=== PATIENT | female | born 1950 | race African-American/Black ===

== ENCOUNTER → 2018-08-23 | Day surgery (SDC) | payer MEDICARE ==
[2018-08-19 11:21] LABS: BASOPHILS # (AUTO) 0.1 (0.0-0.1); EOSINOPHILS # (AUTO) 0.1 (0.0-0.4); EOSINOPHILS % 1.5 % (0.0-6.0); HEMATOCRIT 38.7 % (34.2-44.1); HEMOGLOBIN 11.4 g/dL (12.0-16.0); LYMPHOCYTES # (AUTO) 2.3 (1.0-3.2); LYMPHOCYTES % 38.1 % (18.0-39.1); MEAN CORPUSCULAR HEMOGLOBIN 23.5 pg (28-32); MEAN CORPUSCULAR HGB CONC 29.5 g/dL (31-35); MEAN CORPUSCULAR VOLUME 79.8 fL (81-99); MONOCYTES # (AUTO) 0.6 (0.2-0.8); MONOCYTES % 9.8 % (4.4-11.3); NEUTROPHILS # (AUTO) 2.9 (2.1-6.9); NEUTROPHILS % 49.4 % (38.7-80.0); PLATELET COUNT 241 x10e3/uL (140-360); RED BLOOD COUNT 4.85 x10e6/uL (3.6-5.1); RED CELL DISTRIBUTION WIDTH 14.3 % (11.7-14.4)
[~2018-08-23] MED LIST: ALBUTEROL0.63 MG/3 INH; AMLODIPINE BESYL5 MG PO; ESMOLOL HCL 100MG/10ML 10 MG/ML VIAL IV ONE; ESMOLOL HCL 100MG/10ML 10 MG/ML VIAL ONE; FENTANYL CITRATE/PF 100MCG/2 ML INJ ONE; HYOSCYAMINE SULFATE 0.5 MG/ML INJ ONE; LIDOCAINE HCL 2% LOCAL INJ 5 ML SDV VIAL INJ ONE; LIPITOR10 MG PO; NITROGLYCERIN0.4 MG SL; PROPOFOL IV EMULSION 10 MG/ML 50 ML VIAL ONE; SYMBICORT 16010.2 GM INH; ZOLOFT50 MG PO
--- OUTSIDE RECORDS SUMMARY | 2018-08-23 09:36 | XMS REPORT | Continuity of Care Document ---
Author Author [facility] Interface Address Unknown Phone Unavailable Problems Problem Status Onset Date Classification Date Reported Comments Source Other hammer toe (acquired), left foot 11/27/2017 06/09/2018 [facility] M20.42 - OTHER HAMMER TOE(S) (ACQUIRED) Active 11/18/2017 [facility] Discharge Diagnosis: Benign paroxysmal positional vertigo 12/25/2013 12/27/2013 [facility] Discharge Diagnosis: Nausea 12/25/2013 12/27/2013 [facility] Discharge Diagnosis: Dehydration 12/25/2013 12/27/2013 [facility] Discharge Diagnosis: Acute diarrhea 12/25/2013 12/27/2013 [facility] Discharge Diagnosis: Abdominal pain, acute, epigastric 12/25/2013 12/27/2013 [facility] ABD PAIN Active 12/25/2013 [facility] Hypertension Resolved Problem 06/09/2018 [facility] Stented coronary artery Resolved Problem 06/09/2018 [facility] Medications Medication Details Route Status Patient Instructions Ordering Provider Order Date Source pantoprazole 40 MG Enteric Coated Tablet [Protonix] 40 mg=1 tab, PO, Daily, # 30 tab, 0 Refill(s) Active 12/25/2013 [facility] meclizine 25 mg oral tablet 25 mg, PO, Q6H, Dizziness, # 30 tab, 0 Refill(s) Active 12/25/2013 [facility] Ondansetron 4 MG Oral Tablet [Zofran] 4 mg=1 tab, PO, Q8H, # 10 tab, 0 Refill(s) Active 12/25/2013 [facility] tramadol hydrochloride 50 MG Oral Tablet 50 mg, PO, Q4- 6H, Pain, # 20 tab, 0 Refill(s) Active 12/25/2013 [facility] Meclizine 25 mg, Route: PO, Drug form: TAB, ONCE, Dosing Weight 83.636, kg, Priority: STAT, Start date: 12/25/13 14:24:00, Stop date: 12/25/13 14:24:00 Inactive 12/25/2013 [facility] Famotidine 20 mg, 2 mL, Route: IVP, Drug form: INJ, ONCE, Dosing Weight 83.636, kg, Priority: STAT, Start date: 12/25/13 12:39:00, Stop date: 12/25/13 12:39:00Notes: (Same as: Pepcid) Can be dilute in 5-10cc NS IVP: Slow IV push over at least 2 minutes. Inactive 12/25/2013 [facility] Sodium Chloride 0.154 MEQ/ML Injectable Solution 1,000 mL, 1000 ml/hr, Infuse Over: 1 hr, Route: IV, 1,000, Drug form: INJ, ONCE, Priority: STAT, Dosing Weight 83.636 kg, Start date: 12/25/13 12:39:00, Duration: 1 doses or times, Stop date: 12/25/13 12:39:00 Inactive 12/25/2013 [facility] Saline Flush 0.9% 10 mL, Route: IVP, Drug Form: INJ, Dosing Weight 83.636, kg, PRN, PRN Line Flush, Start date: 12/25/13 12:39:00, Duration: 30 day, Stop date: 01/24/14 12:38:00Notes: (Same as: BD Posiflush) Inactive 12/25/2013 [facility] Morphine 4 mg, 2 mL, Route: IVP, Drug form: INJ, ONCE, Dosing Weight 83.636, kg, Priority: STAT, Start date: 12/25/13 12:39:00, Stop date: 12/25/13 12:39:00Notes: (Same as:MORPhine Sulfate) Inactive 12/25/2013 [facility] Ondansetron 4 mg, 2 mL, Route: IVP, Drug form: INJ, ONCE, Dosing Weight 83.636, kg, Priority: STAT, Start date: 12/25/13 12:39:00, Stop date: 12/25/13 12:39:00Notes: (Same as: Zofran) Inactive 12/25/2013 [facility] Allergies, Adverse Reactions, Alerts Substance Category Reaction Severity Reaction type Status Date Reported Comments Source Latex Assertion Drug allergy Active [facility] Immunizations Immunization Date Given Site Status Last Updated Comments Source Results Order Name Results Value Reference Range Date Interpretation Comments Source Foot series DX Foot series DX Study: Foot series DX 11/20/2017 11:22 AM CDT Patient Name: MONTY ALANIZ MR: [id number] : 1950; Age: 67 years y/o Female Ordering Physician: Tano Pineda DPM Clinical Indication: hammertoe 3rd digit - post op Comparison: None LEFT FOOT, 3 views: 1. No acute fracture, dislocation, or suspicious focal osseous lesion. 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 2. The soft tissues are normal. 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 SL: [id number] 11/20/2017 - - Read by: Soy Muhammad MD Dictated Date/time: 11/20/17 14:10 Electronically Signed by: Soy Muhammad MD 11/20/17 14:12 FINAL REPORT [facility] URINE AND STOOL UA Bacteria Occasional /HPF None Seen /HPF 12/25/2013 [facility] URINE AND STOOL UA Mucus Moderate /LPF None Seen /LPF 12/25/2013 [facility] URINE AND STOOL UA Urobilinogen <=1.0 mg/dL 0.1 - 1.0 12/25/2013 [facility] URINE AND STOOL UA Turbidity Slight *ABN* (12/25/13 1:35 PM) Clear 12/25/2013 [facility] URINE AND STOOL UA pH 5.0 5.0 - 8.0 12/25/2013 [facility] URINE AND STOOL UA Protein Negative mg/dL Negative mg/dL 12/25/2013 [facility] URINE AND STOOL UA Color Yellow *NA* (12/25/13 1:35 PM) Yellow 12/25/2013 [facility] URINE AND STOOL UA Spec Grav 1.023 <=1.030 12/25/2013 [facility] URINE AND STOOL UA WBC null 0 - 5 12/25/2013 [facility] URINE AND STOOL UA RBC 10 /HPF 0 - 2 12/25/2013 [facility] URINE AND STOOL UA Leuk Est Negative (12/25/13 1:35 PM) Negative 12/25/2013 [facility] URINE AND STOOL UA Sq Epi Moderate /LPF Few /LPF 12/25/2013 [facility] URINE AND STOOL UA Glucose Negative mg/dL Negative mg/dL 12/25/2013 [facility] URINE AND STOOL UA Ketones Trace mg/dL Negative mg/dL 12/25/2013 [facility] URINE AND STOOL UA Bili Negative *NA* (12/25/13 1:35 PM) Negative 12/25/2013 [facility] URINE AND STOOL UA Blood Moderate *ABN* (12/25/13 1:35 PM) Negative 12/25/2013 [facility] URINE AND STOOL UA Nitrite Negative (12/25/13 1:35 PM) Negative 12/25/2013 [facility] CARDIAC ENZYMES CK MB Index 0.6 0.0 - 2.5 12/25/2013 [facility] CARDIAC ENZYMES Troponin-I 0.05 ng/mL 0.00 - 0.40 12/25/2013 [facility] CARDIAC ENZYMES CK MB 1.1 ng/mL 0.5 - 3.6 12/25/2013 [facility] CARDIAC ENZYMES Total CK 182 unit/L 12 - 191 12/25/2013 [facility] CHEM PANEL A/G Ratio 0.9 0.7 - 1.6 12/25/2013 [facility] CHEM PANEL B/C Ratio 13 6 - 25 12/25/2013 [facility] CHEM PANEL Globulin 3.8 g/dL 2.0 - 4.0 12/25/2013 [facility] CHEM PANEL AGAP 8.5 meq/L 10.0 - 20.0 12/25/2013 [facility] CHEM PANEL eGFR 79 mL/min/1.73m2 12/25/2013 1Result Comment: The eGFR is calculated using the CKD-EPI formula. In most young, healthy individuals the eGFR will be >90 mL/min/1.73m2. The eGFR declines with age. An eGFR of 60-89 may be normal in some populations, particularly the elderly, for whom the CKD-EPI formula has not been extensively validated. Use of the eGFR is not recommended in the following populations: Individuals with unstable creatinine concentrations, including patients and those with serious co-morbid conditions. Patients with extremes in muscle mass or diet. The data above are obtained from the National Kidney Disease Education Program (NKDEP) which additionally recommends that when the eGFR is used in patients with extremes of body mass index for purposes of drug dosing, the eGFR should be multiplied by the estimated BMI. [facility] CHEM PANEL ALT 23 unit/L 0 - 65 12/25/2013 [facility] CHEM PANEL Albumin Lvl 3.6 g/dL 3.5 - 5.0 12/25/2013 [facility] CHEM PANEL AST 21 unit/L 0 - 37 12/25/2013 [facility] CHEM PANEL Bili Total 0.5 mg/dL 0.2 - 1.3 12/25/2013 [facility] CHEM PANEL Alk Phos 85 unit/L 39 - 136 12/25/2013 [facility] CHEM PANEL Chloride Lvl 103 meq/L 95 - 109 12/25/2013 [facility] CHEM PANEL Potassium Lvl 3.5 meq/L 3.5 - 5.1 12/25/2013 [facility] CHEM PANEL BUN 12 mg/dL 7 - 22 12/25/2013 [facility] CHEM PANEL Sodium Lvl 137 meq/L 135 - 145 12/25/2013 [facility] CHEM PANEL Creatinine Lvl 0.9 mg/dL 0.5 - 1.4 12/25/2013 [facility] CHEM PANEL Calcium Lvl 8.3 mg/dL 8.5 - 10.5 12/25/2013 [facility] CHEM PANEL CO2 29 meq/L 24 - 32 12/25/2013 [facility] CHEM PANEL Total Protein 7.4 g/dL 6.4 - 8.4 12/25/2013 [facility] CHEM PANEL Glucose Lvl 99 mg/dL 70 - 99 12/25/2013 2Interpretive Data: Adult reference range values reflect the clinical guidelines of the [place] [employer]. [facility] CHEM PANEL Lipase Lvl 46 unit/L 73 - 393 12/25/2013 [facility] CHEM PANEL Amylase Lvl 49 unit/L 25 - 115 12/25/2013 [facility] HEMATOLOGY Microcyte 1+ *ABN* (12/25/13 1:24 PM) None Seen 12/25/2013 [facility] HEMATOLOGY Lymphocytes 33.7 % 20.0 - 40.0 12/25/2013 [facility] HEMATOLOGY Monocytes 6.5 % 2.0 - 12.0 12/25/2013 [facility] HEMATOLOGY Segs 57.7 % 45.0 - 75.0 12/25/2013 [facility] HEMATOLOGY Eosinophils 1.1 % 0.0 - 4.0 12/25/2013 [facility] HEMATOLOGY Basophils 1.0 % 0.0 - 1.0 12/25/2013 [facility] HEMATOLOGY Monocytes # 0.3 K/CMM 0.0 - 0.8 12/25/2013 [facility] HEMATOLOGY Segs-Bands # 3.0 K/CMM 1.5 - 8.1 12/25/2013 [facility] HEMATOLOGY Eosinophils # 0.1 K/CMM 0.0 - 0.5 12/25/2013 [facility] HEMATOLOGY Basophils # 0.1 K/CMM 0.0 - 0.2 12/25/2013 [facility] HEMATOLOGY Lymphocytes # 1.8 K/CMM 1.0 - 5.5 12/25/2013 [facility] HEMATOLOGY MCHC 31.8 g/dL 32.0 - 36.0 12/25/2013 [facility] HEMATOLOGY RDW 15.0 % 11.5 - 14.5 12/25/2013 [facility] HEMATOLOGY Platelet 189 K/CMM 133 - 450 12/25/2013 [facility] HEMATOLOGY MPV 8.8 fL 7.4 - 10.4 12/25/2013 [facility] HEMATOLOGY RBC 4.85 M/CMM 4.20 - 5.40 12/25/2013 [facility] MCH 23.9 pg 27.0 - 31.0 12/25/2013 [facility] HEMATOLOGY Hct 36.4 % 36.0 - 48.0 12/25/2013 [facility] MCV 75.1 fL 80.0 - 98.0 12/25/2013 [facility] Hgb 11.6 g/dL 12.0 - 16.0 12/25/2013 [facility] WBC 5.3 K/CMM 3.7 - 10.4 12/25/2013 [facility] IMMUNOLOGY CDC HIV 4th GEN Negative (12/25/13 1:24 PM) Negative 12/25/2013 [facility] Vital Signs Vital Sign Value Date Comments Source Temperature Oral (F) 97.5 F 12/25/2013 [facility] Diastolic (mm Hg) 69 12/25/2013 [facility] Systolic (mm Hg) 123 12/25/2013 [facility] Respitory Rate 16 12/25/2013 [facility] Height 165.1 cm 12/25/2013 [facility] BMI Calculated 30.68 12/25/2013 [facility] Weight 83.636 12/25/2013 [facility] Heart Rate 71 12/25/2013 [facility] Temperature Oral (F) 97.7 F 12/25/2013 [facility] Respitory Rate 18 12/25/2013 [facility] Diastolic (mm Hg) 75 12/25/2013 [facility] Systolic (mm Hg) 145 12/25/2013 [facility] Encounters Location Location Details Encounter Type Encounter Number Reason For Visit Attending Provider ADM Date DC Date Status Source [facility] [id number] Albin Burnett 12/25/2013 12/25/2013 [facility] Outpatient Imaging [facility] [id number] Tano Pineda 11/20/2017 11/21/2017 [facility] Procedures Procedure Code Date Perfomer Comments Source
--- OUTSIDE RECORDS SUMMARY | 2018-08-23 09:36 | XMS REPORT | Clinical Summary ---
Author Author [facility] Organization [facility] Address Unknown Phone Unavailable Care Team Providers Care Manager Unix Name Role Phone System, Provider Not In MD PCP Unavailable Allergies Comments Active Allergy Reactions Severity Noted Date Latex 02/10/2018 Niacin 02/10/2018 Medications End Date Status Medication Sig Dispensed Refills Start Date Active albuterol (PROVENTIL HFA) Inhale 2 0 90 mcg/actuation inhaler puffs every 6 (six) hours as needed for wheezing or shortness of breath. Active aspirin (ECOTRIN) 81 MG Take 81 mg by 0 enteric coated tablet mouth daily. 02/13/2018 Discontinued albuterol (PROAIR HFA) 90 Inhale 1 puff 0 mcg/actuation inhaler 2 (two) times a day. Active Problems Problem Noted Date Chest pain at rest 02/10/2018 Encounters Care Team Description Date Type Specialty Zaida Leong MD Samani, Kaveh, MD Chest pain at rest (Primary Dx) 02/10/2018 Hospital Cardiology - Encounter 02/13/2018 after 08/22/2017 Family History Medical History Relation Name Comments Stroke Father Cancer Mother Diabetes Mother Hypertension Mother Cancer Sister Hypertension Sister Relation Name Status Comments Father Mother pancreatic cancer Sister lung Social History Date Tobacco Use Types Packs/Day Years Used Former Smoker Alcohol Use Drinks/Week oz/Week Comments Yes 1 Glasses of 0.6 drink wicho with coffee every morning wine Sex Assigned at Date Recorded Not on file Industry Job Start Date Occupation Not on file Not on file Not on file Travel End Travel History Travel Start No recent travel history available. Last Filed Vital Signs Time Taken Vital Sign Reading 02/13/2018 7:26 AM CDT Blood Pressure 122/58 02/13/2018 7:26 AM CDT Pulse 69 02/13/2018 7:26 AM CDT Temperature 35.9 C (96.7 F) 02/13/2018 7:26 AM CDT Respiratory Rate 18 02/13/2018 7:26 AM CDT Oxygen Saturation 98% - Inhaled Oxygen - Concentration 02/11/2018 10:05 AM CDT Weight 85.3 kg (188 lb) 02/11/2018 10:05 AM CDT Height 152.4 cm (5') 02/11/2018 10:05 AM CDT Body Mass Index 36.72 Plan of Treatment Health Maintenance Due Date Last Done Comments BREAST CANCER SCREENING 2000 COLON CANCER SCREENING 2000 SHINGLES VACCINES (#1) 2000 65+ PNEUMOCOCCAL VACCINE 2015 (1 of 2 - PCV13) PNEUMOCOCCAL 2015 POLYSACCHARIDE VACCINE AGE 65 AND OVER INFLUENZA VACCINE 11/25/2018 Implants Device Identifier Shelf Expiration Date Model / Serial / Lot Implanted Type Area Manufactur er Cardiac Stent Procedures Comments Procedure Name Priority Date/Time Associated Diagnosis NM MYOCARDIAL PERFUSION Routine 02/12/2018 STRESS REST 2 DAY 9:17 AM CDT ESTIMATED GFR Routine 02/12/2018 4:11 AM CDT BASIC METABOLIC PANEL Routine 02/12/2018 4:11 AM CDT CBC HEMOGRAM Routine 02/12/2018 3:45 AM CDT CV STRESS TEST NUCLEAR Routine 02/11/2018 CARDIO 12:02 PM CDT TROPONIN Routine 02/11/2018 4:00 AM CDT TROPONIN Routine 02/10/2018 8:13 PM CDT XR CHEST 1 VW PORTABLE STAT 02/10/2018 7:10 PM CDT ESTIMATED GFR STAT 02/10/2018 5:14 PM CDT TROPONIN STAT 02/10/2018 5:14 PM CDT CREATINE KINASE, TOTAL STAT 02/10/2018 (CPK) 5:14 PM CDT COMPREHENSIVE METABOLIC STAT 02/10/2018 PANEL 5:14 PM CDT HC COMPLETE BLD COUNT STAT 02/10/2018 W/AUTO DIFF 5:14 PM CDT B NATRIURETIC PEPTIDE STAT 02/10/2018 5:05 PM CDT ECG ED PRELIMINARY Routine 02/10/2018 INTERPRETATION 2:17 PM CDT ECG 12-LEAD STAT 02/10/2018 1:54 PM CDT after 08/22/2017 Results * Myocardial perfusion (02/12/2018 9:17 AM CDT) Narrative Performed At [facility] and Cardiac CT [address] [place] [address] Myocardial Perfusion Imaging Report Stress ECG tracings are available in [employer], [employer] All ECG interpretations are included in this report Pat.Name:Leni BUTTERFIELD.ID:[id number] .Date: 02/11/2018Exam Time: 11:27:00 AM Study Type:Myocardial Perfusion Imaging Height:60in Weight:188lb BSA: 1.82 m2 DOBAge:1950,67Y Sex: FEMALE BP:150/70HR: 75 bpm HCT: 38.5 % Nuclear Tech:NEHA Munoz, CHERY (CT)/NEHA Humphries, CHERY/NEHA Grande Room:[address] Nuclear Event ID:[id number] Order ID:[id number] Reason for Study:Chest pain, unspecified* History / Clinical:COPD, Coronary artery disease, Coronary artery stent, Hypertension, Obesity Procedures:Two Day Stress / Rest Race:-Scottish Risk Factors:Known Coronary Atherosclerosis, Hyperlipidemia, Hypertension, Obesity Clinical Symptoms:Regadenoson Surgery: Serum K+ Date,3.8 on 02/10/18/, BUN/Creatinine Date, 14/0.71 on 02/10/18/, Troponin I Date,1)NEG x2 on 02/10/18 NEG on 02/11/18/ 2)/ 3)/ Medications:Aspirin, Inhaler SUMMARY: SCINTIGRAPHIC RESULTS Perfusion Defect Size (% LV) 0 % Total 0 % Ischemia 0 % Scar Left Ventricular Perfusion Results There is normal tracer distribution during stress and rest. Gated SPECT Results The post-stress left ventricular ejection fraction is 82 % with normal regional wall motion and left ventricular thickening.Left ventricular end-diastolic volume is 60 ml; end-systolic volume is11 ml. The left ventricle is of normal size at stress and at rest.The right ventricle is of normal size with normal wall motion. Conclusion Normal regadenoson Tc-99m tetrofosmin myocardial perfusion study. The left ventricular ejection fraction is normal. Comments Patients with a normal stress myocardial perfusion study have a low (< 1%) annual risk of cardiac or nonfatal myocardial infarction. Study Quality/Artifacts The study quality is good. Comparison to Previous Study None available. STRESS: Baseline Vital Signs:Intervention: Regadenoson 0.4mg/5ml IV over 10 seconds followed by radiotracer injection and 5ml saline flush HR:75 BP:150/70 Stress Test Results: Target HR: 130 Symptoms and Complications: Terminated: As per Regadenoson protocol Symptoms:Chest tightness Signed 02/12/2018 05:14 PM Mode Dozier MD Procedure Note Interface, Radiology Results In - 02/12/2018 5:14 PM CDT Nuclear Cardiology and Cardiac CT [address] [place] [address] Myocardial Perfusion Imaging Report Stress ECG tracings are available in [employer], [employer] All ECG interpretations are included in this report Pat.Name: EDEL BUTTERFIELD Laila.ID: [id number] St.Date: 02/11/2018 Exam Time: 11:27:00 AM Study Type:Myocardial Perfusion Imaging Height: 60in Weight: 188lb BSA: 1.82 m2 Age: 1 1950,67Y Sex: FEMALE BP: 150/70 HR: 75 bpm HCT: 38.5 % Nuclear Tech:Ana Cristina Mascorro [facility] ([facility])/BRIANA HumphriesMT, [facility]/Candy Hancock [facility] Room: [address] Nuclear Event ID:[id number] Order ID: [id number] Reason for Study:Chest pain, unspecified* History / Clinical:COPD, Coronary artery disease, Coronary artery stent, Hypertension, Obesity Procedures:Two Day Stress / Rest Race: -Scottish Risk Factors:Known Coronary Atherosclerosis, Hyperlipidemia, Hypertension, Obesity Clinical Symptoms:Regadenoson Surgery: Serum K+ Date, 3.8 on 02/10/18, BUN/Creatinine Date, 14/0.71 on 02/10/18, Troponin I Date, 1)NEG x2 on 02/10/18 NEG on 02/11/18/ 2)/ 3)/ Medications:Aspirin, Inhaler SUMMARY: SCINTIGRAPHIC RESULTS Perfusion Defect Size (% LV) 0 % Total 0 % Ischemia 0 % Scar Left Ventricular Perfusion Results There is normal tracer distribution during stress and rest. Gated SPECT Results The post-stress left ventricular ejection fraction is 82 % with normal regional wall motion and left ventricular thickening. Left ventricular end-diastolic volume is 60 ml; end-systolic volume is 11 ml. The left ventricle is of normal size at stress and at rest. The right ventricle is of normal size with normal wall motion. Conclusion Normal regadenoson Tc-99m tetrofosmin myocardial perfusion study. The left ventricular ejection fraction is normal. Comments Patients with a normal stress myocardial perfusion study have a low (< 1%) annual risk of cardiac or nonfatal myocardial infarction. Study Quality/Artifacts The study quality is good. Comparison to Previous Study None available. STRESS: Baseline Vital Signs: Intervention: Regadenoson 0.4mg/5ml IV over 10 seconds followed by radiotracer injection and 5ml saline flush HR: 75 BP: 150/70 Stress Test Results: Target HR: 130 Symptoms and Complications: Terminated: As per Regadenoson protocol Symptoms: Chest tightness Signed 02/12/2018 05:14 PM Mode Dozier MD Performing Organization Address City/[facility] Phone Number [facility] [address] [phone] * Estimated GFR (02/12/2018 4:11 AM CDT) Only the most recent of 2 results within the time period is included. Estimated GFR >=90 mL/min/1.73 m2 [facility] DEPARTMENT OF Comment: PATHOLOGY AND [employer] GENOMIC MEDICINE rpretation G1 >=90 Normal or high G2 60-89Mildly decreased [id number] Mildly to moderately decreased [id number] Moderately to severely decreased G4 15-29Severely decreased G5 <15Kidney failure The eGFR was calculated using the Chronic Kidney Disease Epidemiology Collaboration (CKD-EPI) equation. Interpretation is based on recommendations of the National Kidney Foundation-Kidney Disease Outcomes Quality Initiative (NKF-KDOQI) published in 2014. Specimen Plasma specimen Performing Organization Address [facility] Phone Number [facility] DEPARTMENT OF [address] [place] [address] PATHOLOGY AND GENOMIC MEDICINE * Basic metabolic panel (02/12/2018 4:11 AM CDT) Sodium 139 135 - 148 mEq/L [facility] DEPARTMENT OF PATHOLOGY AND GENOMIC MEDICINE Potassium 3.4 (L) 3.5 - 5.0 mEq/L [facility] DEPARTMENT OF PATHOLOGY AND GENOMIC MEDICINE Chloride 101 98 - 112 mEq/L [facility] DEPARTMENT OF PATHOLOGY AND GENOMIC MEDICINE CO2 26 24 - 31 mEq/L [facility] DEPARTMENT OF PATHOLOGY AND GENOMIC MEDICINE Anion gap 12@ANIO 7 - 15 mEq/L [facility] DEPARTMENT OF PATHOLOGY AND GENOMIC MEDICINE BUN 16 8 - 23 mg/dL [facility] DEPARTMENT OF PATHOLOGY AND GENOMIC MEDICINE Creatinine 0.71 0.50 - 0.90 mg/dL [facility] DEPARTMENT OF PATHOLOGY AND GENOMIC MEDICINE Glucose 110 (H) 65 - 99 mg/dL [facility] DEPARTMENT OF PATHOLOGY AND GENOMIC MEDICINE Calcium 9.1 8.8 - 10.2 mg/dL [facility] DEPARTMENT OF PATHOLOGY AND GENOMIC MEDICINE Specimen Plasma specimen Performing Organization Address City/[facility] [place] [address] PATHOLOGY AND GENOMIC MEDICINE * CBC hemogram (02/12/2018 3:45 AM CDT) WBC 8.04 4.50 - 11.00 k/uL [facility] DEPARTMENT OF PATHOLOGY AND GENOMIC MEDICINE RBC 4.51 4.20 - 5.50 m/uL [facility] DEPARTMENT OF PATHOLOGY AND GENOMIC MEDICINE HGB 10.6 (L) 12.0 - 16.0 g/dL [facility] DEPARTMENT OF PATHOLOGY AND GENOMIC MEDICINE HCT 34.1 (L) 37.0 - 47.0 % [facility] DEPARTMENT OF PATHOLOGY AND GENOMIC MEDICINE MCV 75.6 (L) 82.0 - 100.0 fL [facility] DEPARTMENT OF PATHOLOGY AND GENOMIC MEDICINE MCH 23.5 (L) 27.0 - 34.0 pg [facility] DEPARTMENT OF PATHOLOGY AND GENOMIC MEDICINE MCHC 31.1 31.0 - 37.0 g/dL [facility] DEPARTMENT OF PATHOLOGY AND GENOMIC MEDICINE RDW - SD 41.5 37.0 - 55.0 fL [facility] DEPARTMENT OF PATHOLOGY AND GENOMIC MEDICINE MPV 10.1 8.8 - 13.2 fL [facility] DEPARTMENT OF PATHOLOGY AND GENOMIC MEDICINE Platelet count 194 150 - 400 k/uL [facility] DEPARTMENT OF PATHOLOGY AND GENOMIC MEDICINE Nucleated RBC 0.00 /100 WBC [facility] DEPARTMENT OF PATHOLOGY AND GENOMIC MEDICINE Performing Organization Address [facility] Phone Number [place] [phone] PATHOLOGY AND GENOMIC MEDICINE * Cv ecg exercise stress (nuclear or echo) (02/11/2018 12:02 PM CDT) Resting HR 76 [facility] Resting BP 150 [facility] Peak MET Achieved 1.0 [facility] Protocol Name REGADENO [facility] Time in Exercise Phase 00:01:00 [facility] Max Systolic BP 163 [facility] Max Diastolic BP 82 [facility] Max Heart Rate 109 [facility] Max Predicted Heart Rate 153 [facility] Target HR Formula (220 - Age)*100% [facility] Test Indication chest pain [facility] Stress Test Impression Waveform interpreted in report [facility] associated with image study. No interpretation is provided as part of this Stress ECG report.--Electronically Signed By Ari HUNTER, Valeria Sharma ([id number]), technical writer and editor Lyudmila Bernard ([id number]) on 02/11/2018 1:41:24 PM Target HR 153.00 bpm [facility] Performing Organization Address City/[facility]/Zipcode Phone Number [facility] [address] [place] [address] * Troponin (02/11/2018 4:00 AM CDT) Only the most recent of 3 results within the time period is included. Troponin <0.30 0.00 - 0.30 ng/mL [facility] DEPARTMENT OF Comment: PATHOLOGY AND 0.30 - 1.49 GENOMIC MEDICINE ng/mlMay indicate increased risk of acute coronary syndrome. >=1.5 ng/ml Consistent with acute myocardial infarction. The diagnostic value of a single normal or non-diagnostic result is questionable.Serial samples at 2-6 hour intervals are required to rule out acute myocardial injury. Specimen Plasma specimen Performing Organization Address City/[facility] Phone Number [facility] DEPARTMENT OF [address] [place] [address] PATHOLOGY AND GENOMIC MEDICINE * XR Chest 1 Vw Portable (02/10/2018 7:10 PM CDT) Narrative Performed At EXAMINATION:XR CHEST 1 VW PORTABLE RADIANT CLINICAL HISTORY: chest pain COMPARISON:None IMPRESSION: No radiographic evidence for acute cardiopulmonary process. Cardiomediastinal silhouette is at the upper limits of normal and accentuated/magnified due to AP technique. Aorta is mildly tortuous. No focal or confluent airspace consolidation is seen on this single AP plane to suggest acute pneumonia. No sizable pleural effusion. No pneumothorax identified. No acute osseous abnormalities are visualized. [facility]-[id number] Procedure Note Hm Interface, Radiology Results Incoming - 02/10/2018 7:38 PM CDT EXAMINATION: XR CHEST 1 VW PORTABLE CLINICAL HISTORY: chest pain COMPARISON: None IMPRESSION: No radiographic evidence for acute cardiopulmonary process. Cardiomediastinal silhouette is at the upper limits of normal and accentuated/magnified due to AP technique. Aorta is mildly tortuous. No focal or confluent airspace consolidation is seen on this single AP plane to suggest acute pneumonia. No sizable pleural effusion. No pneumothorax identified. No acute osseous abnormalities are visualized. [facility]-[id number] Performing Organization Address [facility]/Zipcode Phone Number [facility] [address] [place] [address] * CBC with platelet and differential (02/10/2018 5:14 PM CDT) WBC 9.55 4.50 - 11.00 k/uL [facility] DEPARTMENT OF PATHOLOGY AND GENOMIC MEDICINE RBC 5.03 4.20 - 5.50 m/uL [facility] DEPARTMENT OF PATHOLOGY AND GENOMIC MEDICINE HGB 12.0 12.0 - 16.0 g/dL [facility] DEPARTMENT OF PATHOLOGY AND GENOMIC MEDICINE HCT 38.5 37.0 - 47.0 % [facility] DEPARTMENT OF PATHOLOGY AND GENOMIC MEDICINE MCV 76.5 (L) 82.0 - 100.0 fL [facility] DEPARTMENT OF PATHOLOGY AND GENOMIC MEDICINE MCH 23.9 (L) 27.0 - 34.0 pg [facility] DEPARTMENT OF PATHOLOGY AND GENOMIC MEDICINE MCHC 31.2 31.0 - 37.0 g/dL [facility] DEPARTMENT OF PATHOLOGY AND GENOMIC MEDICINE RDW - SD 42.2 37.0 - 55.0 fL [facility] DEPARTMENT OF PATHOLOGY AND GENOMIC MEDICINE MPV 10.0 8.8 - 13.2 fL [facility] DEPARTMENT OF PATHOLOGY AND GENOMIC MEDICINE Platelet count 214 150 - 400 k/uL [facility] DEPARTMENT OF PATHOLOGY AND GENOMIC MEDICINE Nucleated RBC 0.00 /100 WBC [facility] DEPARTMENT OF PATHOLOGY AND GENOMIC MEDICINE Neutrophils 67.5 39.0 - 69.0 % [facility] DEPARTMENT OF PATHOLOGY AND GENOMIC MEDICINE Lymphocytes 24.2 (L) 25.0 - 45.0 % [facility] DEPARTMENT OF PATHOLOGY AND GENOMIC MEDICINE Monocytes 7.0 0.0 - 10.0 % [facility] DEPARTMENT OF PATHOLOGY AND GENOMIC MEDICINE Eosinophils 0.6 0.0 - 5.0 % [facility] DEPARTMENT OF PATHOLOGY AND GENOMIC MEDICINE Basophils 0.4 0.0 - 1.0 % [facility] DEPARTMENT OF PATHOLOGY AND GENOMIC MEDICINE Immature granulocytes 0.3Comment: "Immature 0.0 - 1.0 % [facility] DEPARTMENT OF granulocytes" (promyelocytes, PATHOLOGY AND myelocytes, metamyelocytes) GENOMIC MEDICINE Specimen Blood Performing Organization Address City/[facility]/Zipcode Phone Number [facility] [address] [place] [phone] PATHOLOGY AND GENOMIC MEDICINE * Creatine kinase, total (CPK) (02/10/2018 5:14 PM CDT) Creatine kinase 63 26 - 192 U/L [facility] DEPARTMENT OF PATHOLOGY AND GENOMIC MEDICINE Specimen Plasma specimen Performing Organization Address City/[facility]/Zipcode Phone Number [facility] [address] [place] [phone] PATHOLOGY AND GENOMIC MEDICINE * Comprehensive metabolic panel (02/10/2018 5:14 PM CDT) Sodium 140 135 - 148 mEq/L [facility] DEPARTMENT OF PATHOLOGY AND GENOMIC MEDICINE Potassium 3.8 3.5 - 5.0 mEq/L [facility] DEPARTMENT OF PATHOLOGY AND GENOMIC MEDICINE Chloride 100 98 - 112 mEq/L [facility] DEPARTMENT OF PATHOLOGY AND GENOMIC MEDICINE CO2 26 24 - 31 mEq/L [facility] DEPARTMENT OF PATHOLOGY AND GENOMIC MEDICINE Anion gap 14@ANIO 7 - 15 mEq/L [facility] DEPARTMENT OF PATHOLOGY AND GENOMIC MEDICINE BUN 14 8 - 23 mg/dL [facility] DEPARTMENT OF PATHOLOGY AND GENOMIC MEDICINE Creatinine 0.71 0.50 - 0.90 mg/dL [facility] DEPARTMENT OF PATHOLOGY AND GENOMIC MEDICINE Glucose 100 (H) 65 - 99 mg/dL [facility] DEPARTMENT OF PATHOLOGY AND GENOMIC MEDICINE Calcium 9.6 8.8 - 10.2 mg/dL [facility] DEPARTMENT OF PATHOLOGY AND GENOMIC MEDICINE Protein 8.1 6.3 - 8.3 g/dL [facility] DEPARTMENT OF Comment: PATHOLOGY AND GENOMIC MEDICINE 4.6-7.0 g/dL 1 week 4.4-7.6 g/dL 7 months-1year 5.1-7.3 g/dL 1-2 years5.6-7 .5 g/dL >3 years6.0-8 .0 g/dL 18-150 6.3-8.3 g/dL Albumin 3.6 3.5 - 5.0 g/dL [facility] DEPARTMENT OF PATHOLOGY AND GENOMIC MEDICINE A/G ratio 0.8 0.7 - 3.8 [facility] DEPARTMENT OF PATHOLOGY AND GENOMIC MEDICINE Alkaline phosphatase 90 35 - 104 U/L [facility] DEPARTMENT OF PATHOLOGY AND GENOMIC MEDICINE AST 18 10 - 35 U/L [facility] DEPARTMENT OF PATHOLOGY AND GENOMIC MEDICINE ALT 12 5 - 50 U/L [facility] DEPARTMENT OF PATHOLOGY AND GENOMIC MEDICINE Total bilirubin 0.6 0.0 - 1.2 mg/dL [facility] DEPARTMENT OF PATHOLOGY AND GENOMIC MEDICINE Specimen Plasma specimen Performing Organization Address City/[facility]/Zipcode Phone Number [facility] DEPARTMENT [address] [place] [phone] PATHOLOGY AND GENOMIC MEDICINE * B natriuretic peptide (02/10/2018 5:05 PM CDT) BNP 28 0 - 100 pg/mL [facility] DEPARTMENT OF PATHOLOGY AND GENOMIC MEDICINE Performing Organization Address [facility] Phone Number [facility] DEPARTMENT OF [address] [place] [address] PATHOLOGY AND GENOMIC MEDICINE * ECG ED Preliminary Interpretation - NOT AN ORDER (02/10/2018 2:17 PM CDT) Narrative Performed At Zaida Leong MD 02/10/20188:47 PM ECG ED Preliminary Interpretation - Not an Order Performed by: ZAIDA LEONG Authorized by: ZAIDA LEONG ECG reviewed by ED Physician in the absence of a mine safety engineer: yes Previous ECG: Previous ECG:Unavailable Interpretation: Interpretation: normal Rate: ECG rate:83 ECG rate assessment: normal Rhythm: Rhythm: sinus rhythm Ectopy: Ectopy: none QRS: QRS axis:Normal QRS intervals:Normal Conduction: Conduction: normal ST segments: ST segments:Non-specific T waves: T waves: normal * ECG 12 lead (02/10/2018 1:54 PM CDT) Ventricular rate 83 [facility] Atrial rate 83 [facility] PA interval 136 [facility] QRSD interval 70 [facility] QT interval 306 [facility] QTC interval 359 [facility] P axis 1 34 [facility] QRS axis 1 -10 [facility] T wave axis 130 [facility] EKG impression Normal sinus rhythm with sinus [facility] arrhythmia-ST & T wave abnormality, consider lateral ischemia-Abnormal ECG-No previous ECGs available- Performing Organization Address City/[facility] Phone Number [facility] [address] [place] [address] after 08/22/2017 Insurance Payer Benefit Subscriber ID Type Phone Address Plan / Group MEDICAID MEDICAID xxxxxxxxx Medicaid [employer] AMER[employer] xxxxxxxxx HMO -AMERIVANT AGE MCR HMO Advance Directives Patient has advance care planning documents on file. For more information, montserrat pedraza contact: Mike Moreno [address] [place] [address]
--- OUTSIDE RECORDS SUMMARY | 2018-08-23 09:36 | XMS REPORT ---
Author Author [facility] Organization [facility] Address Unknown Phone Unavailable Care Team Providers Care Motor And Chassis Inspector Name Role Phone Unavailable Unavailable Problems This patient has no known problems. Allergies, Adverse Reactions, Alerts This patient has no known allergies or adverse reactions. Medications This patient has no known medications. Encounters Start Date/Time End Date/Time Encounter Type Admission Type Attending [facility] Care Department Encounter ID 2018-03-17 00:00:00 2018-03-17 00:00:00 Outpatient [facility] [id number] 2018-03-04 00:00:00 2018-03-04 00:00:00 Outpatient [facility] [id number] 2018-03-04 00:00:00 2018-03-04 00:00:00 Outpatient [facility] [id number] 2018-01-06 07:56:55 2018-01-06 07:56:55 Outpatient [facility] [id number] 2017-10-15 00:00:00 2017-10-15 00:00:00 Outpatient [facility] [id number] 2017-09-02 10:06:00 2017-09-02 10:06:00 Outpatient [facility] [id number] 2017-09-02 08:46:58 2017-09-02 08:46:58 Outpatient [facility] [id number] 2017-09-02 00:00:00 2017-09-02 00:00:00 Outpatient [facility] [id number] 2017-08-27 00:00:00 2017-08-27 00:00:00 Outpatient [facility] [id number] 2017-07-24 00:00:00 2017-07-24 00:00:00 Outpatient [facility] [id number] 2017-07-13 00:00:00 2017-07-13 00:00:00 Outpatient [facility] [id number] 2017-07-07 08:03:26 2017-07-07 08:03:26 Outpatient [facility] [id number] 2017-06-15 08:44:55 2017-06-15 08:44:55 Outpatient [facility] [id number] 2017-05-29 10:27:41 2017-05-29 10:27:41 Outpatient [facility] [id number] 2017-05-21 10:40:43 2017-05-21 10:40:43 Outpatient [facility] [id number] 2017-05-21 08:50:43 2017-05-21 08:50:43 Outpatient [facility] [id number] 2017-01-20 08:17:36 2017-01-20 08:17:36 Outpatient [facility] [id number] 2017-01-16 00:00:00 2017-01-16 00:00:00 Outpatient [facility] [id number] 2016-12-15 00:00:00 2016-12-15 00:00:00 Outpatient [facility] [id number] 2016-11-26 00:00:00 2016-11-26 00:00:00 Outpatient [facility] [id number] 2016-10-22 00:00:00 2016-10-22 00:00:00 Outpatient [facility] [id number] 2016-10-16 00:00:00 2016-10-16 00:00:00 Outpatient [facility] [id number] 2016-10-07 00:00:00 2016-10-07 00:00:00 Outpatient [facility] [id number] 2016-09-25 15:36:43 2016-09-25 15:36:43 Outpatient [facility] [id number] 2016-09-17 10:15:17 2016-09-17 10:15:17 Outpatient [facility] [id number] 2016-09-11 15:45:24 2016-09-11 15:45:24 Outpatient [facility] [id number] Results Test Description Test Time Test Comments Text Results Atomic Results Result Comments SCR MAMM BILATERAL SANDOR CAD DIGITAL 2018-07-05 18:01:07 - SCR MAMM BILATERAL SANDOR CAD DIGITALBILATERAL DIGITAL SCREENING MAMMOGRAM 3D/2D WITH CAD: 07/01/2018CLINICAL: Asymptomatic. Digital breast tomosynthesis was performed in addition to routine CC and MLO views. Current mammographic images were evaluated by either a Never[employer] M-Vu or a [employer] ImageChecker CAD (computer aided detection system). Comparison is made to exams dated 01/20/2017 mammogram, 11/26 mammogram, 12/20/2014 mammogram, 05/08/2014 mammogram, 06/01/2013 mammogram, and 02/02/2012 mammogram - [facility]. There are scattered fibroglandular tissues in both breasts. There are post operative findings in the right breast. There also is a biopsy clip in the left breast. No suspicious mass, architectural distortion, malignant type calcification, or lymph node abnormality detected. Breast architecture is stable compared to prior exams.IMPRESSION: NEGATIVEThere is no mammographic evidence of malignancy. Resume annual screening mammography in one year. Nichelle vann/madeline rad:07/05/2018 18:01:07 Local [employer] Hazmat Driver: [employer], [facility]-FWletter sent: BIRADS 1-2 Normal Mammogram BI-RADS: 1 Negative
--- OUTSIDE RECORDS SUMMARY | 2018-08-23 09:36 | XMS REPORT | Summary of Care ---
Author Organization Unknown Address Unknown Phone Unavailable Encounter JAILYN Levy(NILS) [id number] Date(s): 12/25/13 - 12/25/13 [facility] [address] Discharge Diagnosis: Benign paroxysmal positional vertigo Discharge Diagnosis: Nausea Discharge Diagnosis: Dehydration Discharge Diagnosis: Acute diarrhea Discharge Diagnosis: Abdominal pain, acute, epigastric Discharge Disposition: Home Physician Attending: Albin Burnett MD Reason for Visit ABD PAIN Vital Signs Most recent to 1 2 oldest [Reference Range]: Height 165.1 cm (12/25/13 12:11 PM) Temperature Oral 97.5 DegF 97.7 DegF [96.4-99.1 DegF] (12/25/13 3:23 PM) (12/25/13 12:11 PM) Systolic Blood 123 mmHg 145 mmHg Pressure [90-140 (12/25/13 3:23 PM) *HI* mmHg] (12/25/13 12:11 PM) Diastolic Blood 69 mmHg 75 mmHg Pressure [60-90 (12/25/13 3:23 PM) (12/25/13 12:11 PM) mmHg] Respiratory Rate 16 BRMIN 18 BRMIN [14-20 BRMIN] (12/25/13 3:23 PM) (12/25/13 12:11 PM) Peripheral Pulse 71 bpm Rate [60-100 bpm] (12/25/13 12:11 PM) Weight 83.636 kg (12/25/13 12:11 PM) Body Mass Index 30.68 m2 (12/25/13 12:11 PM) Problem List Condition Effective Dates Status Health Status Informant Hypertension(Confirm Resolved ed) Stented coronary Resolved artery(Confirmed) Allergies, Adverse Reactions, Alerts Substance Reaction Severity Status Latex Active Medications famotidine 20 mg, 2 mL, Route: IVP, Drug form: INJ, ONCE, Dosing Weight 83.636, kg, Priorit y: STAT, Start date: 12/25/13 12:39:00, Stop date: 12/25/13 12:39:00 Notes: (Same as: Pepcid)Can be dilute in 5-10cc NS IVP: Slow IV push over at le ast 2 minutes. Start Date: 12/25/13 Stop Date: 12/25/13 Status: Completed meclizine 25 mg, Route: PO, Drug form: TAB, ONCE, Dosing Weight 83.636, kg, Priority: STAT , Start date: 12/25/13 14:24:00, Stop date: 12/25/13 14:24:00 Start Date: 12/25/13 Stop Date: 12/25/13 Status: Completed meclizine 25 mg oral tablet 25 mg, PO, Q6H, Dizziness, # 30 tab, 0 Refill(s) Start Date: 12/25/13 Stop Date: 01/02/14 Status: Ordered morphine Sulfate 4 mg, 2 mL, Route: IVP, Drug form: INJ, ONCE, Dosing Weight 83.636, kg, Priority : STAT, Start date: 12/25/13 12:39:00, Stop date: 12/25/13 12:39:00 Notes: (Same as:MORPhine Sulfate) Start Date: 12/25/13 Stop Date: 12/25/13 Status: Completed ondansetron 4 mg, 2 mL, Route: IVP, Drug form: INJ, ONCE, Dosing Weight 83.636, kg, Priority : STAT, Start date: 12/25/13 12:39:00, Stop date: 12/25/13 12:39:00 Notes: (Same as: Zofran) Start Date: 12/25/13 Stop Date: 12/25/13 Status: Completed Protonix 40 mg oral enteric coated tablet 40 mg=1 tab, PO, Daily, # 30 tab, 0 Refill(s) Start Date: 12/25/13 Status: Ordered Saline Flush 0.9% 10 mL, Route: IVP, Drug Form: INJ, Dosing Weight 83.636, kg, PRN, PRN Line Flush , Start date: 12/25/13 12:39:00, Duration: 30 day, Stop date: 01/24/14 12:38:00 Notes: (Same as: BD Posiflush) Start Date: 12/25/13 Stop Date: 12/25/13 Status: Discontinued Sodium Chloride 0.9% (Bolus) IV 1,000 mL, 1000 ml/hr, Infuse Over: 1 hr, Route: IV, 1,000, Drug form: INJ, ONCE, Priority: STAT, Dosing Weight 83.636 kg, Start date: 12/25/13 12:39:00, Duratio n: 1 doses or times, Stop date: 12/25/13 12:39:00 Start Date: 12/25/13 Stop Date: 12/25/13 Status: Completed tramadol 50 mg oral tablet 50 mg, PO, Q4-6H, Pain, # 20 tab, 0 Refill(s) Start Date: 12/25/13 Stop Date: 12/29/13 Status: Ordered Zofran 4 mg oral tablet 4 mg=1 tab, PO, Q8H, # 10 tab, 0 Refill(s) Start Date: 12/25/13 Status: Ordered Results ELECTROLYTES Most recent to 1 oldest [Reference Range]: Sodium Lvl [135-145 137 mEq/L mEq/L] (12/25/13 1:24 PM) Potassium Lvl 3.5 mEq/L [3.5-5.1 mEq/L] (12/25/13 1:24 PM) Chloride Lvl [95-109 103 mEq/L mEq/L] (12/25/13 1:24 PM) CO2 [24-32 mEq/L] 29 mEq/L (12/25/13 1:24 PM) AGAP [10.0-20.0 8.5 mEq/L mEq/L] *LOW* (12/25/13 1:24 PM) CHEM PANEL Most recent to 1 oldest [Reference Range]: Creatinine Lvl 0.9 mg/dL [0.5-1.4 mg/dL] (12/25/13 1:24 PM) eGFR 79 mL/min/1.73m2 1 *NA* (12/25/13 1:24 PM) BUN [7-22 mg/dL] 12 mg/dL (12/25/13 1:24 PM) B/C Ratio [6-25] 13 (12/25/13 1:24 PM) Glucose Lvl [70-99 99 mg/dL 2 mg/dL] (12/25/13 1:24 PM) Total Protein 7.4 g/dL [6.4-8.4 g/dL] (12/25/13 1:24 PM) Albumin Lvl [3.5-5.0 3.6 g/dL g/dL] (12/25/13 1:24 PM) Globulin [2.0-4.0 3.8 g/dL g/dL] (12/25/13 1:24 PM) A/G Ratio [0.7-1.6] 0.9 (12/25/13 1:24 PM) Calcium Lvl 8.3 mg/dL [8.5-10.5 mg/dL] *LOW* (12/25/13 1:24 PM) ALT [0-65 unit/L] 23 unit/L (12/25/13 1:24 PM) AST [0-37 unit/L] 21 unit/L (12/25/13 1:24 PM) Alk Phos [39-136 85 unit/L unit/L] (12/25/13 1:24 PM) Bili Total [0.2-1.3 0.5 mg/dL mg/dL] (12/25/13 1:24 PM) Amylase Lvl [25-115 49 unit/L unit/L] (12/25/13 1:24 PM) Lipase Lvl [73-393 46 unit/L unit/L] *LOW* (12/25/13 1:24 PM) 1Result Comment: The eGFR is calculated using [...] from the National Kidney Disease Education Program ( NKDEP) which additionally recommends that when the eGFR is used in patients with extremes of body mass index for purposes of drug dosing, the eGFR should be mul tiplied by the estimated BMI. 2Interpretive Data: Adult reference range values reflect the clinical guidelines of the [place] [employer]. CARDIAC ENZYMES Most recent to 1 oldest [Reference Range]: Total CK [12-191 182 unit/L unit/L] (12/25/13 1:24 PM) CK MB [0.5-3.6 1.1 ng/mL ng/mL] (12/25/13 1:24 PM) CK MB Index 0.6 [0.0-2.5] (12/25/13 1:24 PM) Troponin-I 0.05 ng/mL [0.00-0.40 ng/mL] (12/25/13 1:24 PM) URINE AND STOOL Most recent to 1 oldest [Reference Range]: UA Turbidity [Clear] Slight *ABN* (12/25/13 1:35 PM) UA Color [Yellow] Yellow *NA* (12/25/13 1:35 PM) UA pH [5.0-8.0] 5.0 (12/25/13 1:35 PM) UA Spec Grav 1.023 [<=1.030] (12/25/13 1:35 PM) UA Glucose [Negative Negative mg/dL mg/dL] *NA* (12/25/13 1:35 PM) UA Blood [Negative] Moderate *ABN* (12/25/13 1:35 PM) UA Ketones [Negative Trace mg/dL mg/dL] *ABN* (12/25/13 1:35 PM) UA Protein [Negative Negative mg/dL mg/dL] (12/25/13 1:35 PM) UA Urobilinogen <=1.0 mg/dL [0.1-1.0 mg/dL] *NA* (12/25/13 1:35 PM) UA Bili [Negative] Negative *NA* (12/25/13 1:35 PM) UA Leuk Est Negative [Negative] (12/25/13 1:35 PM) UA Nitrite Negative [Negative] (12/25/13 1:35 PM) UA WBC [0-5 /HPF] <1 /HPF (12/25/13 1:35 PM) UA RBC [0-2 /HPF] 10 /HPF *HI* (12/25/13 1:35 PM) UA Bacteria [None Occasional /HPF Seen /HPF] *NA* (12/25/13 1:35 PM) UA Sq Epi [Few /LPF] Moderate /LPF *ABN* (12/25/13 1:35 PM) UA Mucus [None Seen Moderate /LPF /LPF] *ABN* (12/25/13 1:35 PM) IMMUNOLOGY Most recent to 1 oldest [Reference Range]: CDC HIV 4th GEN Negative [Negative] (12/25/13 1:24 PM) HEMATOLOGY Most recent to 1 oldest [Reference Range]: WBC [3.7-10.4 K/CMM] 5.3 K/CMM (12/25/13 1:24 PM) RBC [4.20-5.40 4.85 M/CMM M/CMM] (12/25/13 1:24 PM) Hgb [12.0-16.0 g/dL] 11.6 g/dL *LOW* (12/25/13 1:24 PM) Hct [36.0-48.0 %] 36.4 % (12/25/13 1:24 PM) MCV [80.0-98.0 fL] 75.1 fL *LOW* (12/25/13 1:24 PM) MCH [27.0-31.0 pg] 23.9 pg *LOW* (12/25/13 1:24 PM) MCHC [32.0-36.0 31.8 g/dL g/dL] *LOW* (12/25/13 1:24 PM) RDW [11.5-14.5 %] 15.0 % *HI* (12/25/13 1:24 PM) Platelet [133-450 189 K/CMM K/CMM] (12/25/13 1:24 PM) MPV [7.4-10.4 fL] 8.8 fL (12/25/13 1:24 PM) Segs [45.0-75.0 %] 57.7 % (12/25/13 1:24 PM) Lymphocytes 33.7 % [20.0-40.0 %] (12/25/13 1:24 PM) Monocytes [2.0-12.0 6.5 % %] (12/25/13 1:24 PM) Eosinophils [0.0-4.0 1.1 % %] (12/25/13 1:24 PM) Basophils [0.0-1.0 1.0 % %] (12/25/13 1:24 PM) Segs-Bands # 3.0 K/CMM [1.5-8.1 K/CMM] (12/25/13 1:24 PM) Lymphocytes # 1.8 K/CMM [1.0-5.5 K/CMM] (12/25/13 1:24 PM) Monocytes # [0.0-0.8 0.3 K/CMM K/CMM] (12/25/13 1:24 PM) Eosinophils # 0.1 K/CMM [0.0-0.5 K/CMM] (12/25/13 1:24 PM) Basophils # [0.0-0.2 0.1 K/CMM K/CMM] (12/25/13 1:24 PM) Microcyte [None 1+ Seen] *ABN* (12/25/13 1:24 PM) Medications Administered During Your Visit No data available for this section Immunizations No data available for this section Social History Social History Type Response Smoking Status Former smoker, Exposure to Tobacco Smoke None, Cigarette Smoking Last 365 Days No, Reg Smoking Cessation Counseling No
--- OUTSIDE RECORDS SUMMARY | 2018-08-23 09:36 | XMS REPORT | Summary of Care ---
Author Author [facility] Outpatient Imaging [facility] Outpatient Imaging [facility] Address Unknown Phone Unavailable Encounter HQ Byronr_panfilo(FIN) [id number] Date(s): 11/20/17 - 11/20/17 [facility] Outpatient Imaging [facility] [address] [place], [place] [address]- [phone] Encounter Diagnosis Other hammer toe(s) (acquired), left foot (Final) - 11/26/17 Discharge Disposition: Home or Self Care Attending Physician: Tano Pineda DPM Referring Physician: Tano Pineda DPM Vital Signs No data available for this section Problem List Condition Effective Dates Status Health Status Informant Hypertension(Confirm Resolved ed) Stented coronary Resolved artery(Confirmed) Allergies, Adverse Reactions, Alerts Substance Reaction Severity Status Latex Active Medications No data available for this section Results No data available for this section Immunizations No data available for this section Procedures No data available for this section Social History Social History Type Response Smoking Status Former smoker; Exposure to Tobacco Smoke None; Cigarette Smoking Last 365 Days No; Reg Smoking Cessation Counseling No entered on: 12/25/13 Assessment and Plan No data available for this section
[2018-08-23 15:45] VITALS: BP 149/96
--- NOTE | 2018-08-23 21:30 | Operative Report ---
DATE OF PROCEDURE: 08/23/2018 SURGEON: Logan Velasquez MD PROCEDURE: EGD with biopsies and a colonoscopy with polypectomy. REFERRING PHYSICIAN: Dr. Desirae Rodriguez. INDICATIONS FOR EGD: Dyspepsia. INDICATIONS FOR COLONOSCOPY: Colorectal cancer screening. MEDICATIONS: The patient was done under MAC, please see anesthesiologist's note. PROCEDURE IN DETAIL: With the patient in left lateral decubitus position, a flexible fiberoptic Olympus gastroscope was introduced into the esophagus under direct visualization without any difficulty. There was some patchy erythema noted in the distal esophagus. The scope was then advanced with ease into the stomach. Mucosa overlying the antrum and the body revealed some patchy erythema and moderate edema and biopsies were obtained and sent to stain for H pylori. Pylorus was of normal in contour and shape and was intubated with ease and the scope was advanced all the way to the second portion of the duodenum. The scope was then withdrawn slowly. Mucosa overlying the proximal second portion and duodenal bulb appeared to be within normal limits. Biopsies were obtained to rule out sprue. The scope was then withdrawn back into the stomach and retroflexed and mucosa overlying the fundus and cardia appeared to be within normal limits. The scope was then straightened out. It was subsequently withdrawn and the patient tolerated procedure well. IMPRESSION: 1. Distal esophagitis, mild. 2. Gastritis, biopsied. Biopsies were sent to stain for H pylori. 3. Rule out sprue. PLAN: Follow up histology. Initiate Protonix 40 mg one p.o. q.a.m. a.c. The patient was then turned around after adequate lubrication of the anal canal. Flexible fiberoptic Olympus colonoscope was inserted into the rectum with ease and advanced all the way to the cecum. Mucosa overlying the cecum appeared to be within normal limits. One polyp was snared from the ascending colon. The transverse appeared to be within normal limits. Three polyps were hot biopsied from the descending colon. Diverticular disease was noted to involve the distal descending and the sigmoid colon. Two polyps were snared from the sigmoid colon and four polyps were snared from the rectum. The scope was then retroflexed into the distal rectum and small internal hemorrhoids were noted, none of which was actively bleeding. The scope was then straightened out, it was subsequently withdrawn, the patient tolerated procedure well. IMPRESSION: 1. Ascending colon polyp snared. 2. Descending colon polyps x3, hot biopsied. 3. Diverticulosis. 4. Sigmoid colon polyps x2 snared. 5. Rectal polyps x4, snared. 6. Internal hemorrhoids none actively bleeding. PLAN: Followup histology. Initiate high-fiber, low-fat diet. Initiate VSL #3 one p.o. daily. The patient might benefit from a colonoscopy in 1-2 years. Logan Velasquez MD [facility]/MODL /[id number] cc: Desirae Rodriguez MD
== END | disposition home or self-care (01) ==
LOC: OR 09:30
PROVIDERS: ATTEND Internal Medicine Gastroenterology
DX: Z12.11 Encounter for screening for malignant neoplasm of colon (principal); K29.80 Duodenitis without bleeding; K31.9 Disease of stomach and duodenum, unspecified; D12.2 Benign neoplasm of ascending colon; R12 Heartburn; R14.0 Abdominal distension (gaseous); K62.89 Other specified diseases of anus and rectum; R19.7 Diarrhea, unspecified; K59.00 Constipation, unspecified; K29.70 Gastritis, unspecified, without bleeding; K20.9 Esophagitis, unspecified; K63.5 Polyp of colon; K62.1 Rectal polyp; K57.30 Diverticulosis of large intestine without perforation or abscess without bleeding; Z01.810 Encounter for preprocedural cardiovascular examination; Z01.812 Encounter for preprocedural laboratory examination
CPT/HCPCS: 36415; 43239; 45384; 45385; 85025; 93005; J1980; J2001; J2704; 45378